=== PATIENT | male | born 1985 | race African-American/Black ===

== ENCOUNTER 2019-05-17 18:53 | Emergency (ER) | payer SELFPAY ==
[~2019-05-17] VITALS: Ht 162.6 cm; Wt 61.2 kg
[2019-05-17] MEDS ORDERED: GLIPIZIDE5 MG ORAL (19:11)
[2019-05-17] MEDS ORDERED: FLUOXETINE HCL20 MG ORAL (19:11)
[2019-05-17] MEDS ORDERED: LOXAPINE25 M1 PO (19:11)
[2019-05-17] MEDS ORDERED: METFORMIN HCL500 M1 ORAL (19:11)
[2019-05-17 19:58] VITALS: BP 113/69
[2019-05-17] MEDS ORDERED: MEDERMA20 GM TP (21:23)
--- NOTE | 2019-05-17 21:23 | Emergency Room Report ---
History of Present Illness General Chief Complaint: Head Injury Source: Medical Record Present Illness HPI 33-year-old male presents to the emergency department brought by father for facial laceration to the left side of his face status post running into the corner of the open cabinet door earlier this evening. Father states that the patient has some autism and his baseline is for the most part nonverbal. Father states there is no loss of consciousness or some moderate bleeding that is now well controlled. The patient is not on any blood thinning medications. The patient is up-to-date with vaccinations. Father denies any changes to baseline mental status. Father states there was no eye involvement. He also reports that the patient is not exhibiting any signs of having pain. Allergies: Coded Allergies: No Known Allergies (Unverified , 05/17/19) Patient History Past Medical History: see triage record Past Surgical History: none Pertinent Family History: none Immunizations: UTD Reviewed Nursing Documentation: PMH: Agreed; PSxH: Agreed Nursing Documentation-PMH Past Medical History: No History, Except For Hx Diabetes: Yes History Of Psychiatric Problem: Yes - autism Review of Systems All Other Systems: negative except mentioned in HPI Physical Exam Vital Signs Date Time Temp Pulse Resp B/P (MAP) Pulse Ox O2 Delivery O2 Flow Rate FiO2 05/17/19 19:04 98.1 80 18 104/63 (77) 99 Room Air Sp02 EP Interpretation: reviewed, normal General Appearance: no apparent distress, alert, GCS 15, non-toxic Head: normocephalic, other Eyes: bilateral eye normal inspection, bilateral eye PERRL, bilateral eye other - no eye involvement ENT: hearing grossly normal, normal voice Neck: full range of motion Respiratory: lungs clear, normal breath sounds, speaking full sentences Cardiovascular #1: regular rate, rhythm Musculoskeletal: back normal, gait/station normal, normal range of motion, non- tender Neurologic: alert, responsive, motor strength/tone normal, sensory intact, normal gait, other - oriented to baseline per father, grossly normal Psychiatric: judgement/insight normal Skin: laceration - Superficial left sided facial laceration approx 1 cm in length and linear in shape. Procedures Laceration/Wound Repair Laceration/Wound Repair : Consent: Verbal Wound Location: head Wound's Depth, Shape: superficial Wound Length (cm): 1 Wound Explored: clean Irrigated w/ Saline (ccs): 200 Wound Repaired With: Dermabond Layer Closure?: No Sterile Dressing Applied?: No Splint Applied?: No Sling Applied?: No Patient Tolerated: Well Complications: None Medical Decision Making PA Attestation Dr. Ureña is my supervising Physician whom patient management has been discussed with. Diagnostic Impression: Primary Impression: Facial laceration Qualified Codes: S01.81XA - Laceration without foreign body of other part of head, initial encounter ER Course 33-year-old male presents to the emergency department brought by father for facial laceration to the left side of his face status post running into the corner of the open cabinet door earlier this evening. Father states that the patient has some autism and his baseline is for the most part nonverbal. Father states there is no loss of consciousness or some moderate bleeding that is now well controlled. The patient is not on any blood thinning medications. The patient is up-to-date with vaccinations. Father denies any changes to baseline mental status. Father states there was no eye involvement. He also reports that the patient is not exhibiting any signs of having pain. Ddx considered but are not limited to laceration, tendon injury, cellulitis, amputation Vital signs: are WNL, pt. is afebrile H&PE are most consistent with: Superficial left sided facial laceration approx 1 cm in length and linear in shape. ORDERS: none required at this time, the diagnosis is clinical ED INTERVENTIONS: - The wound was copiously irrigated with normal saline, and explored for foreign body for which no FB was found. - The wound was approximated and closed using Dermabond Discussed with patient: That we make every effort to approximate the laceration as best as we can so that scarring will be as cosmetically pleasing as possible with our limited cosmetic skill set in the Emergency dept. Regardless of our best efforts there will be scarring after laceration repair. The extent of scarring is unknown at this time. DISCHARGE: At this time pt. is stable for d/c to home. Will provide printed patient care instructions, and any necessary prescriptions. Care plan and follow up instructions have been discussed with the patient prior to discharge. Last Vital Signs Date Time Temp Pulse Resp B/P (MAP) Pulse Ox O2 Delivery O2 Flow Rate FiO2 05/17/19 19:58 98.3 89 18 113/69 99 Room Air Disposition: HOME, SELF-CARE Condition: Stable Scripts Emollient Combination No.46 (MEDERMA) 20 Gm Cream..g. 1 APPLIC TP QID, #20 GM 1 Refill Prov: Lexi Dill 05/17/19 Patient Instructions: Nonsutured Laceration Care Additional Instructions: Take medications as directed. Follow up with a Primary Care Provider in 3-5 days, even if your symptoms have resolved. --Please review list of primary care clinics, if you do not already have a primary care provider Return sooner to ED if new symptoms occur, or current symptoms become worse. - Please note that this Emergency Department Report was dictated using [employer] burner servicer and installer technology software, occasionally this can lead to erroneous entry secondary to interpretation by the dictation equipment. Lexi Dill May 17, 2019 21:22
[2019-05-17 21:47] VITALS: BP 116/62
== END 2019-05-17 23:02 | disposition home or self-care (01) ==
LOC: EMR 19:26
DX: S01.81XA Laceration without foreign body of other part of head, initial encounter (principal); W22.09XA Striking against other stationary object, initial encounter; Y92.9 Unspecified place or not applicable; F84.0 Autistic disorder
CPT/HCPCS: 99283